=== PATIENT | female | born 1930 | race Caucasian/White ===

== ENCOUNTER 2016-08-31 08:10 | Emergency (ER) | payer MEDICARE, OTHER ==
[~2016-08-31] VITALS: Ht 142.2 cm; Wt 81.3 kg
[~2016-08-31 08:10] MED LIST: HUMALOGP SC; LANTUS2P SC; OMEP40CA2 PO
[2016-08-31 08:27] VITALS: BP 136/102; PULSE 58; RESP 19; TEMP 98.4; O2SAT 98
[2016-08-31] MEDS ORDERED: LANTUS2P SQ (08:56)
[2016-08-31] MEDS ORDERED: HUMALOG SQ (08:56)
[2016-08-31] MEDS ORDERED: SODIUM CHLOR 0.9% 1000 ML INJ 1,000 ML IV SCH (08:59)
[2016-08-31] MEDS ORDERED: SODIUM CHLORIDE 0.9% FLUSH 10 ML FLUSH IV FLUSH PRN (09:00)
[2016-08-31 09:17] LABS: AUTOMATED NEUTROPHIL # 3.4 TH/MM3 (1.8-7.7); BASOPHIL # 0.1 TH/MM3 (0-0.2); BASOPHIL % 1.6 % (0.0-2.0); EOSINOPHIL # 0.6 TH/MM3 (0-0.4); HEMO FLAGS DIFF FINAL; LYMPH % 23.6 % (9.0-44.0); LYMPHOCYTE # 1.4 TH/MM3 (1.0-4.8); MEAN CELL VOLUME 98.9 FL (80.0-100.0); MEAN CORPUSCULAR HEMOGLOBIN 33.1 PG (27.0-34.0); MEAN CORPUSCULAR HGB CONC 33.5 % (32.0-36.0); MONO % 5.2 % (0.0-8.0); NEUT % 59.6 % (16.0-70.0); PLATELET COUNT 243 TH/MM3 (150-450); RED BLOOD COUNT 4.35 MIL/MM3 (4.00-5.30); RED CELL DISTRIBUTION WIDTH 12.9 % (11.6-17.2); WHITE BLOOD COUNT 5.8 TH/MM3 (4.0-11.0)
--- NOTE | 2016-08-31 09:38 | PD ---
HPI Chief Complaint: Abdominal Pain Time Seen by Provider: 08:53 Travel History International Travel<30 days: No Contact w/Intl Traveler<30days: No Traveled to known affect area: No History of Present Illness HPI Patient is an 86-year-old female with history of appendectomy, hysterectomy, lysis of adhesions, who presents to emergency room with complaints of abdominal pain with constipation. She reports that for the past 3 days, she has not had a bowel movement, reports that her abdomen feels distended and she feels nauseous as she feels full. Reports one episode of emesis while in the ER. Reports that she has episodes of constipation every 3 months, reports "I have to go to the ER and go to the Enema room and I usually feel better after I have a bowel movement." Reports that she has seen GI in the past - Dr. Haney and did have a colonoscopy 2 years ago which showed internal hemorrhoids. Patient denies any fevers or chills, denies chest pain or shortness of breath. Patient denies any dysuria, urinary urgency or frequency. PFSH Past Medical History Arthritis: Yes Autoimmune Disease: No Blood Disorders: No Anxiety: No Depression: No Cancer: No Cardiovascular Problems: Yes (Angina) High Cholesterol: Yes (DYSLIPIDEMIA) Chest Pain: Yes Diabetes: Yes (On insulin QID ) Patient Takes Glucophage: No Diminished Hearing: No Endocrine: No Gastrointestinal Disorders: Yes (SEVERE CONSTIPATION) GERD: Yes Genitourinary: No Hepatitis: No Hiatal Hernia: Yes Immune Disorder: No Medical other: Yes (VENOUS INSUFFICIENCY) Musculoskeletal: Yes (ARTHRITIS OF SPINE) Neurologic: No Psychiatric: No Reproductive: No Respiratory: No Seizures: No Thyroid Disease: No ?: Not Past Surgical History Abdominal Surgery: Yes (APPENDECTOMY) AICD: No Appendectomy: Yes Cardiac Surgery: No Ear Surgery: Yes (3 MASTOIDECTOMY CHILD) Endocrine Surgery: No Eye Surgery: Yes (CATARACT SURGERY BILATERAL 2012) Genitourinary Surgery: Yes (BLADDER TUCK WITH HYSTERECTOMY) Gynecologic Surgery: Yes (HYSTERECTOMY) Hysterectomy: Yes Joint Replacement: No Oral Surgery: Yes (TONSILECTOMY) Pacemaker: No Thoracic Surgery: Yes (LEFT BREAST BIOPSY MARKER ) Tonsillectomy: Yes Other Surgery: Yes Social History Alcohol Use: No Tobacco Use: No Substance Use: No Allergies-Medications (Allergen,Severity, Reaction): Coded Allergies: Latex (Verified Allergy, Severe, Itching, rash, 08/31/16) Reported Meds & Prescriptions Reported Meds & Active Scripts Active Lactulose Liq (Lactulose) 10 Gm/15 Ml Soln 30 Ml PO Q6H PRN Reported Lantus Inj (Insulin Glargine) 1,000 Unit/10 Ml Vial Unknown Dose SQ HS Humalog Inj (Insulin Human Lispro) 1,000 Unit/10 Ml Vial Unknown Dose SQ TID Max dose at bedtime:( )units; sugars< 70,(0)units; sugars 150-199,(1)unit; sugars 200-249,(3)units; sugars 250-299,(5)units; sugars 300-349,(7)units; sugars more than 349,(9)units. Review of Systems General / Constitutional: No: Fever Eyes: No: Visual changes HENT: No: Headaches Cardiovascular: No: Chest Pain or Discomfort Respiratory: No: Shortness of Breath Gastrointestinal: Positive: Nausea, Vomiting, Abdominal Pain, Constipation Genitourinary: No: Dysuria Musculoskeletal: No: Pain Skin: No Rash Neurologic: No: Weakness Psychiatric: No: Depression Endocrine: No: Polydipsia Hematologic/Lymphatic: No: Easy Bruising Physical Exam Narrative GENERAL: Mild distress SKIN: Focused skin assessment warm/dry. HEAD: Atraumatic. Normocephalic. EYES: Pupils equal and round. No scleral icterus. No injection or drainage. ENT: No nasal bleeding or discharge. Mucous membranes pink and moist. NECK: Trachea midline. No JVD. CARDIOVASCULAR: Regular rate and rhythm. No murmur appreciated. RESPIRATORY: No accessory muscle use. Clear to auscultation. Breath sounds equal bilaterally. GASTROINTESTINAL: Abdomen soft, tenderness to lower abdomen with no rebound or guarding RECTAL: Patient with soft stool in rectum, light brown stool MUSCULOSKELETAL: No obvious deformities. No clubbing. No cyanosis. No edema. NEUROLOGICAL: Awake and alert. No obvious cranial nerve deficits. Motor grossly within normal limits. Normal speech. PSYCHIATRIC: Appropriate mood and affect; insight and judgment normal. Data Data Last Documented VS Vital Signs Date Time Temp Pulse Resp B/P Pulse Ox O2 Delivery O2 Flow Rate FiO2 08/31/16 13:03 86 20 202/102 97 08/31/16 08:27 98.4 Orders Complete Blood Count With Diff (08/31/16 08:59) Comprehensive Metabolic Panel (08/31/16 08:59) Lipase (08/31/16 08:59) Prothrombin Time / Inr (Pt) (08/31/16 08:59) Act Partial Throm Time (Ptt) (08/31/16 08:59) Urinalysis - C+S If Indicated (08/31/16 08:59) Iv Access Insert/Monitor (08/31/16 08:59) Sodium Chlor 0.9% 1000 Ml Inj (Ns 1000 M (08/31/16 08:59) Sodium Chloride 0.9% Flush (Ns Flush) (08/31/16 09:00) Ct Abd/Pel W Iv Contrast(Rout) (08/31/16 09:32) Ondansetron Inj (Zofran Inj) (08/31/16 09:45) Morphine Inj (Morphine Inj) (08/31/16 09:45) Oral Contrast - Adult (08/31/16 09:56) Diatrizoate Liq ( Gastroview Liq) (08/31/16 10:00) Insulin Human Regular Inj (Novolin R Inj (08/31/16 11:00) Sodium Chlor 0.9% 1000 Ml Inj (Ns 1000 M (08/31/16 11:00) Iohexol 350 Inj (Omnipaque 350 Inj) (08/31/16 11:47) Mineral Oil Enema (Fleet Mineral Oil Crystal (08/31/16 13:00) Lactulose Liq (Lactulose Liq) (08/31/16 13:00) Lactulose Liq (Lactulose Liq) (08/31/16 13:15) Labs Laboratory Tests Test 08/31/16 08/31/16 09:00 10:25 White Blood Count 5.8 TH/MM3 Red Blood Count 4.35 MIL/MM3 Hemoglobin 14.4 GM/DL Hematocrit 43.0 % Mean Corpuscular Volume 98.9 FL Mean Corpuscular Hemoglobin 33.1 PG Mean Corpuscular Hemoglobin 33.5 % Concent Red Cell Distribution Width 12.9 % Platelet Count 243 TH/MM3 Mean Platelet Volume 8.7 FL Neutrophils (%) (Auto) 59.6 % Lymphocytes (%) (Auto) 23.6 % Monocytes (%) (Auto) 5.2 % Eosinophils (%) (Auto) 10.0 % Basophils (%) (Auto) 1.6 % Neutrophils # (Auto) 3.4 TH/MM3 Lymphocytes # (Auto) 1.4 TH/MM3 Monocytes # (Auto) 0.3 TH/MM3 Eosinophils # (Auto) 0.6 TH/MM3 Basophils # (Auto) 0.1 TH/MM3 CBC Comment DIFF FINAL Differential Comment Prothrombin Time 11.1 SEC Prothromb Time International 1.0 RATIO Ratio Activated Partial 27.0 SEC Thromboplast Time Sodium Level 138 MEQ/L Potassium Level 4.0 MEQ/L Chloride Level 101 MEQ/L Carbon Dioxide Level 26.7 MEQ/L Anion Gap 10 MEQ/L Blood Urea Nitrogen 13 MG/DL Creatinine 0.90 MG/DL Estimat Glomerular Filtration 60 ML/MIN Rate Random Glucose 358 MG/DL Calcium Level 8.9 MG/DL Total Bilirubin 1.6 MG/DL Aspartate Amino Transf 19 U/L (AST/SGOT) Alanine Aminotransferase 18 U/L (ALT/SGPT) Alkaline Phosphatase 99 U/L Total Protein 6.7 GM/DL Albumin 3.4 GM/DL Lipase 89 U/L Urine Collection Type CLEAN CATCH Urine Color YELLOW Urine Turbidity CLEAR Urine pH 6.0 Urine Specific [place] 1.016 Urine Protein NEG mg/dL Urine Glucose (UA) 1000 OR GREATER mg/dL Urine Ketones 40 mg/dL Urine Occult Blood TRACE Urine Nitrite NEG Urine Bilirubin NEG Urine Leukocyte Esterase NEG Urine Squamous Epithelial 0-5 /hpf Cells Microscopic Urinalysis Comment CULT NOT INDICATED MDM Medical Decision Making Medical Screen Exam Complete: Yes Emergency Medical Condition: Yes Interpretation(s) Vital Signs Date Time Temp Pulse Resp B/P Pulse Ox O2 Delivery O2 Flow Rate FiO2 08/31/16 08:27 98.4 58 19 136/102 98 Differential Diagnosis Constipation, small bowel obstruction Narrative Course 86-year-old female who presents to emergency room with complaints of abdominal pain with constipation for the past 3 days. Patient reports that she has had multiple abdominal surgeries in the past including lysis of adhesions, hysterectomy as well as appendectomy. Patient reports that every 3 months, she becomes constipated and requires to come to the emergency room for an enema. Patient is uncomfortable on exam, plan to obtain lab work as well as CT of abdomen and pelvis oral contrast to evaluate for possible small bowel obstruction. rectal exam performed, patient with soft stools on exam with NO obvious hard impacted stools Laboratory Tests Test 08/31/16 08/31/16 09:00 10:25 White Blood Count 5.8 TH/MM3 (4.0-11.0) Red Blood Count 4.35 MIL/MM3 (4.00-5.30) Hemoglobin 14.4 GM/DL (11.6-15.3) Hematocrit 43.0 % (35.0-46.0) Mean Corpuscular Volume 98.9 FL (80.0-100.0) Mean Corpuscular Hemoglobin 33.1 PG (27.0-34.0) Mean Corpuscular Hemoglobin 33.5 % Concent (32.0-36.0) Red Cell Distribution Width 12.9 % (11.6-17.2) Platelet Count 243 TH/MM3 (150-450) Mean Platelet Volume 8.7 FL (7.0-11.0) Neutrophils (%) (Auto) 59.6 % (16.0-70.0) Lymphocytes (%) (Auto) 23.6 % (9.0-44.0) Monocytes (%) (Auto) 5.2 % (0.0-8.0) Eosinophils (%) (Auto) 10.0 % (0.0-4.0) Basophils (%) (Auto) 1.6 % (0.0-2.0) Neutrophils # (Auto) 3.4 TH/MM3 (1.8-7.7) Lymphocytes # (Auto) 1.4 TH/MM3 (1.0-4.8) Monocytes # (Auto) 0.3 TH/MM3 (0-0.9) Eosinophils # (Auto) 0.6 TH/MM3 (0-0.4) Basophils # (Auto) 0.1 TH/MM3 (0-0.2) CBC Comment DIFF FINAL Differential Comment Prothrombin Time 11.1 SEC (9.8-11.6) Prothromb Time International 1.0 RATIO Ratio Activated Partial 27.0 SEC Thromboplast Time (24.3-30.1) Sodium Level 138 MEQ/L (136-145) Potassium Level 4.0 MEQ/L (3.5-5.1) Chloride Level 101 MEQ/L (98-107) Carbon Dioxide Level 26.7 MEQ/L (21.0-32.0) Anion Gap 10 MEQ/L (5-15) Blood Urea Nitrogen 13 MG/DL (7-18) Creatinine 0.90 MG/DL (0.50-1.00) Estimat Glomerular Filtration 60 ML/MIN (>89) Rate Random Glucose 358 MG/DL (74-106) Calcium Level 8.9 MG/DL (8.5-10.1) Total Bilirubin 1.6 MG/DL (0.2-1.0) Aspartate Amino Transf 19 U/L (15-37) (AST/SGOT) Alanine Aminotransferase 18 U/L (10-53) (ALT/SGPT) Alkaline Phosphatase 99 U/L (45-117) Total Protein 6.7 GM/DL (6.4-8.2) Albumin 3.4 GM/DL (3.4-5.0) Lipase 89 U/L (73-393) Urine Collection Type CLEAN CATCH Urine Color YELLOW (YELLW/STRAW) Urine Turbidity CLEAR (CLEAR) Urine pH 6.0 (5.0-8.5) Urine Specific [place] 1.016 (1.002-1.035) Urine Protein NEG mg/dL (NEG-TRACE) Urine Glucose (UA) 1000 OR GREATER mg/dL (NEG) Urine Ketones 40 mg/dL (NEG) Urine Occult Blood TRACE (NEG) Urine Nitrite NEG (NEG) Urine Bilirubin NEG (NEG) Urine Leukocyte Esterase NEG (NEG) Urine Squamous Epithelial 0-5 /hpf (0-5) Cells Microscopic Urinalysis Comment CULT NOT INDICATED ct abdomen and pelvis: large amount of stool in the left colon with distention of the sigmoid and rectum. Right sided renal cyst Patient given enema as well as lactulose. I did attempt to rectally disimpact patient but stool is soft and I was only able to extract a small amount of stool I did review all labs and studies with patient in detail. A copy of her ct report was given to her. She will return to ER as needed. In the meantime, will start her on lactulose. She will call her gi doctor for earliest follow up. Patient did have a large bowel movement while in the ER, she report that she is feeling much better at this time after her bowel movement. Diagnosis Primary Impression: Constipation Qualified Code: K59.00 - Constipation, unspecified constipation type Additional Impression: Renal cyst Patient Instructions: General Instructions Additional Instructions: Please take all medications as prescribed Return to emergency room as needed Please follow-up with your GI doctor as well as your primary care doctor and 1- 2 days Med/Other Pt SpecificInfo: Prescription(s) given Scripts Lactulose Liq 10 Gm/15 Ml Soln30 Ml PO Q6H PRN (CONSTIPATION) #900 ML Ref 0 Prov:Kavita Wang DO 08/31/16 Kavita Wang DO Aug 31, 2016 09:37
[2016-08-31 09:39] LABS: PROTHROMBIN TIME - PATIENT 11.1 SEC (9.8-11.6)
[2016-08-31] MEDS ORDERED: ONDANSETRON HCL 4 MG/2 ML VIAL IV PUSH ONE (09:45)
[2016-08-31] MEDS ORDERED: MORPHINE SULFATE 4 MG/ML INJ IV PUSH ONE (09:45)
[2016-08-31] MEDS ORDERED: DIATRIZOATE MEGLUM/DIATRIZOATE SOD 9 ML CUP ONE (10:00)
[2016-08-31 10:25] LABS: ANION GAP 10 MEQ/L (5-15); BICARBONATE 26.7 MEQ/L (21.0-32.0); BLOOD UREA NITROGEN 13 MG/DL (7-18); CHLORIDE 101 MEQ/L (98-107); SODIUM (NA) 138 MEQ/L (136-145)
[2016-08-31 10:28] LABS: ALT (GPT) 18 U/L (10-53); AST (GOT) 19 U/L (15-37); GLOMERULAR FILTRATION RATE 60 ML/MIN (>89)
[2016-08-31 10:30] LABS: TOTAL BILIRUBIN ADULT 1.6 MG/DL (0.2-1.0)
[2016-08-31 10:31] VITALS: BP 218/101; PULSE 88; RESP 20; O2SAT 96
[2016-08-31 10:31] LABS: ALKALINE PHOSPHATASE 99 U/L (45-117)
[2016-08-31 10:37] LABS: BLOOD, URINE TRACE (NEG); GLUCOSE,URINE 1000 OR GREATER mg/dL (NEG); KETONE, URINE 40 mg/dL (NEG); NITRITE,URINE NEG (NEG)
[2016-08-31 10:38] LABS: METHOD OF COLLECTION CLEAN CATCH; URINE COLOR YELLOW (YELLW/STRAW)
[2016-08-31 10:42] LABS: COMMENT (UR) CULT NOT INDICATED; CULTURE IF INDICATED CULT NOT INDICATED; SQUAMOUS EPITHELIAL CELL URINE 0-5 /hpf (0-5)
[2016-08-31] MEDS ORDERED: SODIUM CHLOR 0.9% 1000 ML INJ 1,000 ML IV ONE (11:00)
[2016-08-31] MEDS ORDERED: INSULIN HUMAN REGULAR 1,000 UNITS/10 ML VIAL SQ ONE (11:00)
[2016-08-31 11:11] VITALS: BP 204/104; PULSE 81; RESP 20; O2SAT 96
[2016-08-31] MEDS ORDERED: IOHEXOL 350 MG/ML 10 ML VIAL (for RAD DIAG) IV ONE (11:47)
--- NOTE | 2016-08-31 12:58 | RADHPO ---
EXAM DATE/TIME: 08/31/2016 11:31 [facility] COMPARISON: No previous studies available for comparison. INDICATIONS : Abdomen pain with constipation past 3 days. IV CONTRAST: 70 cc Omnipaque 350 (iohexol) IV ORAL CONTRAST: Prescribed oral contrast ingested. RADIATION DOSE: 18.88 CTDIvol (mGy) MEDICAL HISTORY : Cardiovascular disease. Hernia, hiatal. Diabetes mellitus type 2.GERD SURGICAL HISTORY : Hysterectomy. Fusion, lumbar. ENCOUNTER: Initial ACUITY: 3 days PAIN SCALE: 10/10 LOCATION: Bilateral abdomen TECHNIQUE: Volumetric scanning of the abdomen and pelvis was performed. Using automated exposure control and adjustment of the mA and/or kV according to patient size, radiation dose was kept as low as reasonably achievable to obtain optimal diagnostic quality images. FINDINGS: The liver, spleen, pancreas and adrenal glands are normal. There is a 3.7 cm cyst at the inferolater al right kidney. The kidneys appear otherwise normal. There is no hydronephrosis. Scattered athero sclerotic calcifications are seen throughout the arterial system. No aneurysm is seen. The gallblad len is free of calcified stones. There is a large amount of stool seen throughout the left side of the colon. The rectum and sigmoid are distended to 7 cm. The patient does have a mild hiatal hernia present. Significantly dilated sm all bowel is not seen. The abdominal wall appears intact. The patient does have some induration in the subcutaneous fat over the left anterior abdominal wall likely related to a prior injection. The lung bases are clear. There is postoperative change with transpedicular screws at the left L4 an d L5 levels. There is degenerative change throughout the lumbar spine and the lower thoracic spine. CONCLUSION: 1. Large amount of stool in the left side of the colon with distention of the sigmoid and rectum. S ignificant inflammatory change is not seen. 2. Degenerative and postoperative change in the thoracic and lumbar spine as described above. 3. Right renal cyst. Kyler Duncan MD on August 31, 2016 at 12:46 Board Certified Radiologist. This report was verified electronically.
[2016-08-31] MEDS ORDERED: MINERAL OIL ENEMA 118 ML BTL RECTAL ONE (13:00)
[2016-08-31] MEDS ORDERED: LACTULOSE SYRUP 20 GM/30 ML CUP PO ONE ×2 (13:00→13:15)
[2016-08-31 13:03] VITALS: BP 202/102; PULSE 86; RESP 20; O2SAT 97
[2016-08-31] MEDS ORDERED: LACT10SO PO (13:05)
[2016-08-31 13:46] VITALS: BP 173/84
== END 2016-08-31 13:48 | disposition home or self-care (01) ==
LOC: PHED 08:10
DX: N28.1 Cyst of kidney, acquired (principal); E78.00 Pure hypercholesterolemia, unspecified; I87.2 Venous insufficiency (chronic) (peripheral); E11.9 Type 2 diabetes mellitus without complications; M19.90 Unspecified osteoarthritis, unspecified site; Z79.01 Long term (current) use of anticoagulants
CPT/HCPCS: 74177; 80053; 81001; 83690; 85025; 85610; 85730; 96361; 96372; 96374; 96375; 99284; J1815; J2270; J2405; J7030; Q9963; Q9967

== ENCOUNTER 2017-02-19 04:20 | Emergency (ER) | payer MEDICARE, OTHER ==
[~2017-02-19] VITALS: Ht 152.4 cm; Wt 79.0 kg
[~2017-02-19 04:20] MED LIST changes: +HUMALOG SQ; -HUMALOGP SC; +LACT10SO PO; -LANTUS2P SC; +LANTUS2P SQ; -OMEP40CA2 PO
[2017-02-19 04:32] VITALS: BP 220/95; PULSE 78; RESP 18; TEMP 98; O2SAT 99
[2017-02-19 05:31] VITALS: BP 190/84; PULSE 69; RESP 16; O2SAT 99
[2017-02-19] MEDS ORDERED: IBUP-232 PO (06:06)
[2017-02-19] MEDS ORDERED: TRAM50TA PO (06:06)
--- NOTE | 2017-02-19 06:07 | PD ---
HPI Chief Complaint: Fall Time Seen by Provider: 04:39 Travel History International Travel<30 days: No Contact w/Intl Traveler<30days: No Traveled to known affect area: No History of Present Illness HPI 87-year-old female presents to the emergency department by EMS transport from home after a non-syncopal trip and fall just prior to arrival to the emergency department. Patient was up out of bed and tripped on the rug on a tile floor falling forward. Patient states she did not hit her head, did not lose consciousness, did not injure her neck, denies any upper extremity pain or but did contuse the elbows has no decreased range of motion or deformity of the shoulders upper arm elbows forearms wrist or hands. Patient denies any upper extremity numbness tingling or weakness. Patient denies injuring her upper back or lower back. Patient denies any chest wall pain rib pain chest pain shortness of breath or abdominal pain. Patient complains of right knee pain and right upper leg pain. Patient did not attempt to become ambulatory at home. Patient states she was unable to get up off of the floor on her own or with the assistance of her spouse. Patient denies previous injury to the right lower extremity. Patient does not take any blood thinning agents according to the patient. Patient rates her pain 6/10 in intensity. Patient is diabetic and blood sugar was 211. PFSH Past Medical History Narrative Medical Dyslipidemia angina arthritis hypertension venous insufficiency chronic lower extremity pain hysterectomy breast biopsy tonsillectomy appendectomy; no tobacco use no alcohol use; nursing notes reviewed Arthritis: Yes Autoimmune Disease: No Blood Disorders: No Anxiety: No Depression: No Cancer: No Cardiovascular Problems: Yes (Angina) High Cholesterol: Yes (DYSLIPIDEMIA) Chest Pain: Yes Diabetes: Yes Patient Takes Glucophage: No Diminished Hearing: No Endocrine: No Gastrointestinal Disorders: Yes (SEVERE CONSTIPATION) GERD: Yes Genitourinary: No Hepatitis: No Hiatal Hernia: Yes Immune Disorder: No Medical other: Yes (VENOUS INSUFFICIENCY) Musculoskeletal: Yes (ARTHRITIS OF SPINE) Neurologic: No Psychiatric: No Reproductive: No Respiratory: No Seizures: No Thyroid Disease: No Past Surgical History Abdominal Surgery: Yes (APPENDECTOMY) AICD: No Appendectomy: Yes Cardiac Surgery: No Ear Surgery: Yes (3 MASTOIDECTOMY CHILD) Endocrine Surgery: No Eye Surgery: Yes (CATARACT SURGERY BILATERAL 2012) Genitourinary Surgery: Yes (BLADDER TUCK WITH HYSTERECTOMY) Gynecologic Surgery: Yes (HYSTERECTOMY) Hysterectomy: Yes Joint Replacement: No Oral Surgery: Yes (TONSILECTOMY) Pacemaker: No Thoracic Surgery: Yes (LEFT BREAST BIOPSY MARKER ) Tonsillectomy: Yes Other Surgery: Yes Social History Alcohol Use: No Tobacco Use: No Substance Use: No Allergies-Medications (Allergen,Severity, Reaction): Coded Allergies: latex (Unverified Allergy, Severe, Itching, rash, 02/19/17) Reported Meds & Prescriptions Reported Meds & Active Scripts Active Ibuprofen 600 Mg Tab 600 Mg PO Q8H PRN Tramadol (Tramadol HCl) 50 Mg Tab 50 Mg PO Q8H PRN Reported Lantus Inj (Insulin Glargine) 1,000 Unit/10 Ml Vial Unknown Dose SQ HS Humalog Inj (Insulin Human Lispro) 1,000 Unit/10 Ml Vial Unknown Dose SQ ACHS SLIDING SCALE Max dose at bedtime:( )units; sugars< 70,(0)units; sugars 150-199,(1)unit; sugars 200-249,(3)units; sugars 250-299,(5)units; sugars 300-349,(7)units; sugars more than 349,(9)units. Review of Systems Except as stated in HPI: all other systems reviewed are Neg General / Constitutional: No: Fever, Chills Eyes: No: Visual changes HENT: No: Headaches, Congestion, Neck Stiffness, Neck Pain Cardiovascular: No: Chest Pain or Discomfort Respiratory: No: Shortness of Breath Gastrointestinal: No: Nausea, Vomiting, Abdominal Pain Genitourinary: No: Pelvic Pain Musculoskeletal: Positive: Pain (right knee and upper leg) Skin: No Rash Neurologic: No: Weakness Psychiatric: No: Anxiety Hematologic/Lymphatic: No: Lymph Node Enlargement Physical Exam Narrative GENERAL: Well-developed well-nourished female in no acute distress no respiratory distress; GCS 15 SKIN: Warm and dry. HEAD: Atraumatic. Normocephalic. EYES: Pupils equal and round. No scleral icterus. No injection or drainage. ENT: No nasal bleeding or discharge. Mucous membranes pink and moist. NECK: Trachea midline. No JVD. No midline tenderness to direct palpation along the cervical spine no bony step-off. CARDIOVASCULAR: Regular rate and rhythm. RESPIRATORY: No accessory muscle use. Clear to auscultation. Breath sounds equal bilaterally. GASTROINTESTINAL: Abdomen soft, non-tender, nondistended. Hepatic and splenic margins not palpable. MUSCULOSKELETAL: Extremities without clubbing, cyanosis, or edema. No obvious deformities. Patient is able to demonstrate hip flexion and knee flexion of bilateral lower extremities with bilateral dorsalis pedis pulses 2+ to palpation. There is no bony deformity. There is no joint deformity. There is no obvious ballotable effusion of the knees bilaterally. NEUROLOGICAL: Awake and alert. No obvious cranial nerve deficits. Motor grossly within normal limits. Five out of 5 muscle strength in the arms and legs. Normal speech. PSYCHIATRIC: Appropriate mood and affect; insight and judgment normal. Data Data Last Documented VS Vital Signs Date Time Temp Pulse Resp B/P (MAP) Pulse Ox O2 Delivery O2 Flow Rate FiO2 02/19/17 06:53 02/19/17 05:31 69 16 99 Room Air 02/19/17 04:32 98.0 Orders Orders Pelvis, Ap Only (Routine) (02/19/17 ) Femur (Ap & Lat/2vws) (02/19/17 ) Ed Discharge Order (02/19/17 06:38) MDM Medical Decision Making Medical Screen Exam Complete: Yes Emergency Medical Condition: Yes Medical Record Reviewed: Yes Interpretation(s) Pelvic x-ray: No acute bony injury FINDINGS: Lumbar fusion hardware is present on the left at L4-5. There are degenerative changes in the hips and visualized spine. There is no evidence of hip fracture or pelvic fracture. Kyler Jones MD on February 19, 2017 at 6:18 Board Certified Radiologist. This report was verified electronically. Right femur x-ray: No acute bony injury small knee effusion RIGHT femur XR:FINDINGS: There is no evidence of fracture. 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 Vascular calcifications are present in the soft tissues. CONCLUSION: No acute bony injury Last Impressions Pelvis X-Ray 02/19/17 0000 Signed Impressions: Service Date/Time: Sunday, February 19, 2017 04:57 - CONCLUSION: Acute bony injury Kyler Jones MD ADDENDUM: Conclusion should read no acute bony injury Kyler Jones MD Femur X-Ray 02/19/17 0000 Signed Impressions: Service Date/Time: Sunday, February 19, 2017 04:53 - CONCLUSION: No acute bony injury MD Kyler Francis MD on February 19, 2017 at 6:14 Board Certified Radiologist. This report was verified electronically. Differential Diagnosis Mechanical fall, pelvic fracture, hip fracture, femur fracture, knee fracture, internal derangement of the right knee, ankle sprain strain fracture Narrative Course Imaging studies ordered At 5:57 AM patient is able ambulate in exam room with minimal assistance and minimal discomfort. Shortly after a witnessed ambulation in exam room and patient returned to exam stretcher patient was found walking with minimal assistance from her spouse and walker and dressing herself preparing to be discharged to home. At this point in time patient appears to be stable for outpatient management and ambulates without antalgic movement and no clear indication for CT imaging of the pelvis or right hip as appears to be stable at this time. Patient is encouraged to use a walker to assist with ambulation at all times and to follow-up with her orthopedist. Diagnosis Primary Impression: Contusion of right hip and thigh Qualified Codes: S70.01XA - Contusion of right hip, initial encounter; S70.11XA - Contusion of right thigh, initial encounter Additional Impression: Contusion of right knee Qualified Codes: S80.01XA - Contusion of right knee, initial encounter Referrals: Orthopedist 1 day Patient Instructions: General Instructions Additional Instructions: Use walker to assist ambulation at all times Follow-up with your primary care provider and your orthopedist call office in a.m. to schedule follow-up appointment Use ice intermittently to areas of soft tissue swelling and injury for the first 12-24 hours then moist heat for comfort May take ibuprofen sparingly 600 mg as often as every 8 hours as needed for pain associated with inflammation take with food and do not take this medication if not having pain associated with inflammation May take prescription tramadol as needed for pain greater than 5/10 in intensity. Aware that narcotic and medication similar to narcotics can impair judgment, delay reaction time, increased risk for fall, and cause constipation use this as needed and not on a routine basis Return to the emergency for for any concerns or change in condition Increase fluid hydration Med/Other Pt SpecificInfo: Prescription(s) given Scripts Ibuprofen (Ibuprofen) 600 Mg Tab 600 MG PO Q8H Y for PAIN, #7 TAB 0 Refills Prov: Ann-Marie Watkins MD 02/19/17 Tramadol (Tramadol) 50 Mg Tab 50 MG PO Q8H Y for PAIN, #7 TAB 0 Refills Prov: Ann-Marie Watkins MD 02/19/17 Disposition: 01 DISCHARGE HOME Condition: Stable Ann-Marie Watkins MD Feb 19, 2017 06:07
--- NOTE | 2017-02-19 06:17 | RADRPT ---
EXAM DATE/TIME: 02/19/2017 04:53 [facility] COMPARISON: No previous studies available for comparison. INDICATIONS : Trauma, fall. MEDICAL HISTORY : None. SURGICAL HISTORY : None. ENCOUNTER: Initial ACUITY: 1 day PAIN SCORE: 4/10 LOCATION: Right femur. FINDINGS: There is no evidence of fracture. There are degenerative arthritic changes in the hip and knee with c hondrocalcinosis present in the indicating pyrophosphate arthropathy. Vascular calcifications are pre sent in the soft tissues. CONCLUSION: No acute bony injury Kyler Jones MD on February 19, 2017 at 6:14 Board Certified Radiologist. This report was verified electronically.
--- NOTE | 2017-02-19 06:20 | RADRPT ---
EXAM DATE/TIME: 02/19/2017 04:57 This report includes an Addendum and supersedes previous reports for this exam. [facility] COMPARISON: No previous studies available for comparison. INDICATIONS : Trauma, fall. MEDICAL HISTORY : None. SURGICAL HISTORY : Fusion, lumbar. ENCOUNTER: Initial ACUITY: 1 day PAIN SCORE: 4/10 LOCATION: Right pelvis FINDINGS: Lumbar fusion hardware is present on the left at L4-5. There are degenerative changes in the hips and visualized spine. There is no evidence of hip fracture or pelvic fracture. CONCLUSION: Acute bony injury Kyler Jones MD on February 19, 2017 at 6:18 Board Certified Radiologist. This report was verified electronically. ADDENDUM: Conclusion should read no acute bony injury Kyler Jones MD on February 19, 2017 at 6:48 Board Certified Radiologist. This report was verified electronically.
== END 2017-02-19 06:52 | disposition home or self-care (01) ==
LOC: NEPC 04:20
DX: S70.01XA Contusion of right hip, initial encounter (principal); S70.11XA Contusion of right thigh, initial encounter; S80.01XA Contusion of right knee, initial encounter; W18.09XA Striking against other object with subsequent fall, initial encounter
CPT/HCPCS: 72170; 73552; 99283

== ENCOUNTER 2017-02-28 09:17 | Emergency (ER) | payer MEDICARE, OTHER ==
[~2017-02-28] VITALS: Ht 144.8 cm; Wt 75.0 kg
[~2017-02-28 09:17] MED LIST changes: +IBUP-232 PO; -LACT10SO PO; +TRAM50TA PO
[2017-02-28 09:25] VITALS: BP 182/77; PULSE 83; RESP 16; TEMP 98.8; O2SAT 98
--- NOTE | 2017-02-28 10:21 | RADRPT ---
EXAM DATE/TIME: 02/28/2017 10:00 [facility] COMPARISON: CT ABDOMEN & PELVIS W CONTRAST, August 31, 2016, 11:31. INDICATIONS : Left hip pain after fall. MEDICAL HISTORY : None. SURGICAL HISTORY : Fusion, lumbar. ENCOUNTER: Initial ACUITY: 2 days PAIN SCORE: 10/10 LOCATION: Left hip FINDINGS: AP view of the pelvis with 2 views of the left hip joint demonstrate undermineralization of the bones . No fracture is identified. There is left joint space narrowing with osteophytes. Mineralization is present in the soft tissues adjacent to the left ischial tuberosity. There are left-sided pedicular s crews at L4-L5. Arterial vascular calcification is present. CONCLUSION: 1. No acute left hip abnormality is identified. 2. Bones are undermineralized and there is moderate left hip joint osteoarthritis. Kyler Madden MD on February 28, 2017 at 10:16 Board Certified Radiologist. This report was verified electronically.
[2017-02-28] MEDS ORDERED: HUMALOG SQ (10:26)
[2017-02-28] MEDS ORDERED: LANTUS2P SQ (10:26)
--- NOTE | 2017-02-28 11:21 | PD ---
HPI Chief Complaint: Hip Injury Time Seen by Provider: 10:54 Travel History International Travel<30 days: No Contact w/Intl Traveler<30days: No Traveled to known affect area: No History of Present Illness HPI 87-year-old female with PMH of DM presents to the ED for evaluation of 10/10 left hip pain. Onset as she was lying in bed last night. She states that she attempted to swing her leg over the bed and bear weight and this was "beyond painful." She denies numbness, tingling, weakness of the extremity, radiation of the pain. She has been ambulatory with a walker since the incident. On presentation she states that her symptoms have improved greatly, currently rated 3/10. No alleviating or exacerbating factors reported. She can identify no acute injury. She treated with Aleve and ice with no improvement of symptoms. PFSH Past Medical History Arthritis: Yes Autoimmune Disease: No Blood Disorders: No Anxiety: No Depression: No Cancer: No Cardiovascular Problems: Yes (Angina) High Cholesterol: Yes (DYSLIPIDEMIA) Chest Pain: Yes Diabetes: Yes Patient Takes Glucophage: No Diminished Hearing: No Endocrine: No Gastrointestinal Disorders: Yes (SEVERE CONSTIPATION) GERD: Yes Genitourinary: No Hepatitis: No Hiatal Hernia: Yes Immune Disorder: No Medical other: Yes (VENOUS INSUFFICIENCY) Musculoskeletal: Yes (ARTHRITIS OF SPINE) Neurologic: No Psychiatric: No Reproductive: No Respiratory: No Seizures: No Thyroid Disease: No Tetanus Vaccination: < 5 Years Influenza Vaccination: Yes Past Surgical History Abdominal Surgery: Yes (APPENDECTOMY) AICD: No Appendectomy: Yes Cardiac Surgery: No Ear Surgery: Yes (3 MASTOIDECTOMY CHILD) Endocrine Surgery: No Eye Surgery: Yes (CATARACT SURGERY BILATERAL 2012) Genitourinary Surgery: Yes (BLADDER TUCK WITH HYSTERECTOMY) Gynecologic Surgery: Yes (HYSTERECTOMY) Hysterectomy: Yes Joint Replacement: No Oral Surgery: Yes (TONSILECTOMY) Pacemaker: No Thoracic Surgery: Yes (LEFT BREAST BIOPSY MARKER ) Tonsillectomy: Yes Other Surgery: Yes Social History Alcohol Use: No Tobacco Use: No Substance Use: No Allergies-Medications (Allergen,Severity, Reaction): Coded Allergies: latex (Verified Allergy, Severe, Itching, rash, 02/28/17) Reported Meds & Prescriptions Reported Meds & Active Scripts Active Ibuprofen 600 Mg Tab 600 Mg PO Q8H 7 Days Reported Lantus Inj (Insulin Glargine) 1,000 Unit/10 Ml Vial 10 Units SQ HS Humalog Inj (Insulin Human Lispro) 1,000 Unit/10 Ml Vial 5 Units SQ TIDAC Review of Systems Except as stated in HPI: all other systems reviewed are Neg Physical Exam Narrative GENERAL: Well-nourished, well-developed obese white female no acute distress. SKIN: Focused skin assessment warm/dry. HEAD: Normocephalic. EYES: No scleral icterus. No injection or drainage. NECK: Supple, trachea midline. No JVD or lymphadenopathy. CARDIOVASCULAR: Regular rate and rhythm without murmurs, gallops, or rubs. RESPIRATORY: Breath sounds equal bilaterally. No accessory muscle use. GASTROINTESTINAL: Abdomen soft, non-tender, nondistended. MUSCULOSKELETAL: No cyanosis, or edema. Homans sign negative bilaterally. FOCUSED LEFT LOWER EXTREMITY EXAM: 2+ DP pulse. Tender to palpation on the anterolateral aspect of the hip. Sensation intact to light touch distally. Patient is able to wiggle the toes and flex the ankles. No leg length discrepancy. Patient is able to bear weight and demonstrates a shuffling gait. BACK: Nontender without obvious deformity. No CVA tenderness. Data Data Last Documented VS Vital Signs Date Time Temp Pulse Resp B/P (MAP) Pulse Ox O2 Delivery O2 Flow Rate FiO2 02/28/17 10:30 76 16 98 Room Air 02/28/17 09:25 98.8 182/77 (112) Orders Orders Hip, Uni(Ap&Lat) W Ap Pelvis (02/28/17 ) Ketorolac Inj (Toradol Inj) (02/28/17 11:30) MDM Medical Decision Making Medical Screen Exam Complete: Yes Emergency Medical Condition: Yes Differential Diagnosis Osteoarthritis versus bursitis versus fracture versus dislocation versus other Narrative Course 87-year-old female with PMH of DM presents to the ED for evaluation of 02/18 left hip pain. Onset at rest. She states that she attempted to swing her leg over the bed and bear weight and this was "beyond painful." She denies numbness , tingling, weakness of the extremity, radiation of the pain. She has been ambulatory with a walker since the incident. On presentation she states that her symptoms have improved currently rated 3/10. No acute injury. Vitals reviewed. Physical exam reveals an obese white female in no acute distress. S2 plus DP pulse, sensation is intact distally. Patient is able to wiggle the toes and ankle. She is tender to palpation on the anterolateral aspect of the hip, I suspect osteoarthritis or bursitis. No pain elicited with internal and external rotation. She is able to bear weight and demonstrated a shuffling gait. X-ray reveals moderate ON under mineralization of the bones. Will treat with a short course of anti-inflammatories and referral to the orthopedist. Dr. Villarreal is on-call today. 15 mg IM Toradol was administered. Patient prescribed 600 mg ibuprofen 3 times a day 7 days. Patient is agreeable to the care plan. We discussed reasons to return to the ED. She stable and discharged home. Diagnosis Primary Impression: Osteoarthritis of left hip Qualified Codes: M16.12 - Unilateral primary osteoarthritis, left hip Additional Impression: Left hip pain Referrals: Juan J Villarreal MD Patient Instructions: General Instructions, Hip Pain (ED) Additional Instructions: Rest, hydrate. Use your walker to ambulate for the next few weeks. Return to normal, gentle activity as tolerated. Take antiinflammatories as prescribed. Begin tomorrow. Heat or ice applied to areas of pain for 10-15 minutes a few times a day may help to reduce your symptoms. Follow-up with Dr. Villarreal next week as discussed. Return to the ED for any urgent or emergent medical condition. Med/Other Pt SpecificInfo: Prescription(s) given Scripts Ibuprofen (Ibuprofen) 600 Mg Tab 600 MG PO Q8H for 7 Days, #21 TAB 0 Refills Prov: Bianca Nelson MD 02/28/17 Disposition: 01 DISCHARGE HOME Condition: Stable Sarah Finch Feb 28, 2017 11:21
[2017-02-28] MEDS ORDERED: IBUP-232 PO (11:23)
[2017-02-28] MEDS ORDERED: KETOROLAC TROMETHAMINE 60 MG/2 ML (IM) VIAL IM ONE (11:30)
[2017-02-28 11:58] VITALS: BP 176/75; PULSE 80; RESP 20; O2SAT 97
[2017-02-28 12:20] VITALS: BP 156/81; TEMP 97
[2017-03-01] MEDS ORDERED: HYDR-3533 PO (20:38)
== END 2017-02-28 12:18 | disposition home or self-care (01) ==
LOC: NEPD 09:17
DX: M16.12 Unilateral primary osteoarthritis, left hip (principal); E11.9 Type 2 diabetes mellitus without complications; Z79.4 Long term (current) use of insulin
CPT/HCPCS: 73502; 96372; 99284; J1885

== ENCOUNTER 2017-03-01 18:10 | Emergency (ER) | payer MEDICARE, OTHER ==
[~2017-03-01] VITALS: Ht 144.8 cm; Wt 79.0 kg
[~2017-03-01 18:10] MED LIST changes: -TRAM50TA PO
[2017-03-01 18:14] VITALS: BP 179/86; PULSE 98; RESP 16; TEMP 98.4; O2SAT 97
--- NOTE | 2017-03-01 18:44 | PD ---
HPI Chief Complaint: Musculoskeletal Complaint Time Seen by Provider: 18:40 Travel History International Travel<30 days: No Contact w/Intl Traveler<30days: No Traveled to known affect area: No History of Present Illness HPI 87-year-old female states last week she had a trip and fall and injured her right hip. She had x-rays that were negative. She states her right hip got better but then she had significant pain to her left hip. She came and had x- rays at that and it was negative but the pain has gotten severe despite the Motrin she was given. She states no other concurrent complaints at this time. Pain is worse with movement. Severity of pain is severe. Quality pain is sharp. She denies other modifying factors. PFSH Past Medical History Arthritis: Yes Autoimmune Disease: No Blood Disorders: No Anxiety: No Depression: No Cancer: No Cardiovascular Problems: Yes (Angina) High Cholesterol: Yes (DYSLIPIDEMIA) Chest Pain: Yes Diabetes: Yes Patient Takes Glucophage: No Diminished Hearing: No Endocrine: No Gastrointestinal Disorders: Yes (SEVERE CONSTIPATION) GERD: Yes Genitourinary: No Hepatitis: No Hiatal Hernia: Yes Immune Disorder: No Medical other: Yes (VENOUS INSUFFICIENCY) Musculoskeletal: Yes (ARTHRITIS OF SPINE) Neurologic: No Psychiatric: No Reproductive: No Respiratory: No Seizures: No Thyroid Disease: No Tetanus Vaccination: < 5 Years Influenza Vaccination: Yes Past Surgical History Abdominal Surgery: Yes (APPENDECTOMY) AICD: No Appendectomy: Yes Cardiac Surgery: No Ear Surgery: Yes (3 MASTOIDECTOMY CHILD) Endocrine Surgery: No Eye Surgery: Yes (CATARACT SURGERY BILATERAL 2012) Genitourinary Surgery: Yes (BLADDER TUCK WITH HYSTERECTOMY) Gynecologic Surgery: Yes (HYSTERECTOMY) Hysterectomy: Yes Joint Replacement: No Oral Surgery: Yes (TONSILECTOMY) Pacemaker: No Thoracic Surgery: Yes (LEFT BREAST BIOPSY MARKER ) Tonsillectomy: Yes Other Surgery: Yes Social History Alcohol Use: No Tobacco Use: No (QUIT 50 YRS AGO) Substance Use: No Allergies-Medications (Allergen,Severity, Reaction): Coded Allergies: latex (Verified Allergy, Severe, Itching, rash, 03/01/17) Reported Meds & Prescriptions Reported Meds & Active Scripts Active Ibuprofen 600 Mg Tab 600 Mg PO Q8H 7 Days Reported Lantus Inj (Insulin Glargine) 1,000 Unit/10 Ml Vial 10 Units SQ HS Humalog Inj (Insulin Human Lispro) 1,000 Unit/10 Ml Vial 5 Units SQ TIDAC Review of Systems Except as stated in HPI: all other systems reviewed are Neg Physical Exam Narrative General: 87 y/o patient who is uncomfortable Skin: Warm and dry Eyes: Pupils equal Cardiovascular: Regular rate and rhythm Respiratory: Normal respiratory effort noted Abdomen: soft, nontender, nondistended Extremities: Pain with palpation of left lateral hip, no lacerations over, neurovascularly intact, no pain with palpation of other joints other than mild over right hip laterally where she has an area of ecchymosis Neuro: awake, alert, sensation grossly intact, moves extremities Data Data Last Documented VS Vital Signs Date Time Temp Pulse Resp B/P (MAP) Pulse Ox O2 Delivery O2 Flow Rate FiO2 03/01/17 18:14 98.4 98 16 179/86 (117) [address] Pelvis W/O Iv Contrast (03/01/17 ) Femur (Ap & Lat/2vws) (03/01/17 ) Morphine Inj (Morphine Inj) (03/01/17 18:45) MDM Medical Decision Making Medical Screen Exam Complete: Yes Emergency Medical Condition: Yes Medical Record Reviewed: Yes (past history confirm, recent x-ray noted as negative) Differential Diagnosis Fracture, strain, arthritis Narrative Course Will check CT to rule out fracture and dose with morphine and reevaluate Physician Communication Physician Communication Oncoming physician will follow imaging and reevaluate Lor Dugan MD Mar 01, 2017 18:44
[2017-03-01] MEDS ORDERED: MORPHINE SULFATE 4 MG/ML INJ IM ONE (18:45)
--- NOTE | 2017-03-01 19:38 | RADRPT ---
EXAM DATE/TIME: 03/01/2017 18:58 [facility] COMPARISON: No previous studies available for comparison. INDICATIONS : Left leg pain post fall. Mainly c/o pain in hip/buttocks area. MEDICAL HISTORY : Cardiovascular disease. Hiatal hernia. Diabetes mellitus type II. GERD. SURGICAL HISTORY : Hysterectomy. Fusion, lumbar. ENCOUNTER: Initial ACUITY: 1 week PAIN SCORE: 8/10 LOCATION: Left femur FINDINGS: Two view examination of the left femur demonstrates no evidence of fracture or dislocation. Bony min eralization is normal. The soft tissue structures are intact. CONCLUSION: 1. No acute findings. Mild osteoarthritis of the left hip and left knee. Sven Hidalgo MD on March 01, 2017 at 19:32 Board Certified Radiologist. This report was verified electronically.
--- NOTE | 2017-03-01 19:55 | RADRPT ---
EXAM DATE/TIME: 03/01/2017 19:11 [facility] COMPARISON: No previous studies available for comparison. INDICATIONS : Status post fall last week. Left hip pain. Question of fracture. ORAL CONTRAST: No oral contrast ingested. RADIATION DOSE: 21.48 CTDIvol (mGy) MEDICAL HISTORY : None SURGICAL HISTORY : Appendectomy. Hysterectomy.Bladder suspension ENCOUNTER: Initial ACUITY: 1 week PAIN SCALE: 9/10 LOCATION: Left proximal hip TECHNIQUE: Volumetric scanning of the pelvis was performed. Using automated exposure control and adjustment of the mA and/or kV according to patient size, radiation dose was kept as low as reasonably achievable t o obtain optimal diagnostic quality images. DICOM format image data is available electronically for review and comparison. FINDINGS: BOWEL/MESENTERY: The visualized small and large bowel demonstrate no acute abnormality. There is no free fluid. BLADDER: There is no wall thickening or mass. RETROPERITONEUM: There is no aneurysm or lymphadenopathy. REPRODUCTIVE: Within normal limits. INGUINAL: There is no lymphadenopathy or hernia. MUSCULOSKELETAL: Moderate osteoarthritis left hip. No acute fracture identified. Osteopenia. CONCLUSION: 1. No acute fracture identified. Moderate osteoarthritis of the left hip joint. Previous fusion lower lumbar spine. Osteopenia. Sven Hidalgo MD on March 01, 2017 at 19:50 Board Certified Radiologist. This report was verified electronically.
--- NOTE | 2017-03-01 20:01 | PD ---
Physical Exam Time Seen by Provider: 20:[address] Mccormick left knee with this patient to check the results of the x-rays and CAT scans and make a disposition, likely discharge. Data Data Last Documented VS Vital Signs Date Time Temp Pulse Resp B/P (MAP) Pulse Ox O2 Delivery O2 Flow Rate FiO2 03/01/17 18:14 98.4 98 16 179/86 (117) [address] Pelvis W/O Iv Contrast (03/01/17 ) Femur (Ap & Lat/2vws) (03/01/17 ) Morphine Inj (Morphine Inj) (03/01/17 18:45) MDM Medical Record Reviewed: Yes Supervised Visit with SOBEIDA: Yes Interpretation(s) The CT pelvis shows no acute fracture and only moderate osteoarthritis of the left hip joint. Incidentally noticed his previous fusion of the lower lumbar spine and osteopenia. The left femur shows no acute findings and shows mild osteoarthritis of the left hip and left knee. Differential Diagnosis Arthritis, fracture, occult fracture, intractable pain contusion hip, fractured hip Narrative Course The patient states she has intractable pain anytime she moves and her states she can't make it at home. The patient was offered admission to the hospital for intractable pain. At this time the patient and her are trying to make up her mind whether she be admitted or not. It is now 8:38 PM and the patient and her made up her mind that she will go home. She'll be given Lortab 5 for pain. She will call Dr. Onofre Friday to set up an appointment. Diagnosis Primary Impression: Contusion of right hip Additional Impression: Arthritis of right hip Additional Instruction: Give Dr. Onofre a call Friday to set up an appointment. The Lortab 5 is 1 tablet every 4 hours as needed for pain. Do not drink alcohol or drive on this medication. You can take along with ibuprofen. Med/Other Pt SpecificInfo: Prescription(s) given Scripts Hydrocodone-Acetaminophen (Lortab) 5-325 Mg Tab 1 TAB PO Q4H Y for PAIN, #30 TAB 0 Refills Prov: Ac Daugherty MD 03/01/17 Disposition: DISCHARGE HOME Condition: Stable Ac Daugherty MD Mar 01, 2017 20:01
[2017-03-01] MEDS ORDERED: HYDR-3533 PO (20:38)
[2017-03-01 20:55] VITALS: BP 185/97; PULSE 89; RESP 15; TEMP 98.2; TEMP 98.4; O2SAT 97
[2017-03-01] MEDS ORDERED: ACETAMINOPHEN/HYDROcodone 325 MG/5 MG TAB PO ONE (21:00)
== END 2017-03-01 21:14 | disposition home or self-care (01) ==
LOC: PHED 18:10
DX: M16.12 Unilateral primary osteoarthritis, left hip (principal); M17.12 Unilateral primary osteoarthritis, left knee; M85.88 Other specified disorders of bone density and structure, other site; S70.01XD Contusion of right hip, subsequent encounter; E11.9 Type 2 diabetes mellitus without complications; E78.5 Hyperlipidemia, unspecified; W01.0XXD Fall on same level from slipping, tripping and stumbling without subsequent striking against object, subsequent encounter; Z79.4 Long term (current) use of insulin; Z87.39 Personal history of other diseases of the musculoskeletal system and connective tissue; Z86.79 Personal history of other diseases of the circulatory system; Z87.19 Personal history of other diseases of the digestive system
CPT/HCPCS: 72192; 73552; 96372; 99285; J2270